=== PATIENT | male | born 2000 | race Caucasian/White ===

== ENCOUNTER 2023-11-23 16:13 | Emergency (ER) | payer OTHER ==
[~2023-11-23] VITALS: Ht 182.9 cm; Wt 90.7 kg
[2023-11-23 16:58] VITALS: BP 122/96
[2023-11-24] MEDS ORDERED: ONDA4ODT MM (15:59)
[2023-11-24] MEDS ORDERED: FAMO20 PO (15:59)
== END 2023-11-23 17:22 | disposition home or self-care (01) ==
LOC: ER 16:13
DX: K59.00 Constipation, unspecified (principal)
CPT/HCPCS: 99283; A9270

== ENCOUNTER 2023-11-24 13:08 | Emergency (ER) | payer OTHER ==
[~2023-11-24] VITALS: Ht 182.9 cm; Wt 87.5 kg
[2023-11-24 14:08] LABS: BASOPHILS ABSOLUTE AUTO 0.02 K/mm3 (0.00-0.23); BASOPHILS PERCENT AUTO 0 % (0-2); EOSINOPHILS ABSOLUTE AUTO 0.03 K/mm3 (0.00-0.68); EOSINOPHILS PERCENT AUTO 1 % (0-6); Hematocrit 47.2 % (37.0-53.0); Hemoglobin 15.1 g/dL (13.5-17.5); IMMATURE GRAN ABSOLUTE AUTO 0.01 K/mm3 (0.00-0.10); IMMATURE GRAN PERCENT AUTO 0 % (0-1); LYMPHOCYTES ABSOLUTE AUTO 1.86 K/mm3 (0.84-5.20); LYMPHOCYTES PERCENT AUTO 28 % (21-46); MONOCYTES ABSOLUTE AUTO 0.73 K/mm3 (0.16-1.47); MONOCYTES PERCENT AUTO 11 % (4-13); Mean Corpuscular HGB 26.4 pg (26.0-34.0); Mean Corpuscular Volume 83 fL (80-100); NEUTROPHILS ABSOLUTE AUTO 3.94 K/mm3 (1.96-9.15); NEUTROPHILS PERCENT AUTO 60 % (41-73); Platelet Count 475 K/mm3 (150-400); RDW Standard Deviation 41.9 fL (35.1-46.3); Red Blood Cell Count 5.71 M/mm3 (4.30-5.90); White Blood Cell Count 6.59 K/mm3 (4.00-11.30)
[2023-11-24 14:18] LABS: Albumin, Blood 3.8 g/dL (3.4-5.0); Albumin/Globulin Ratio 0.8 (0.8-1.8); Bilirubin, Total 0.7 mg/dL (0.1-1.0); Calcium, Blood 9.3 mg/dL (8.5-10.1); Globulin, Blood 4.6 g/dL (2.2-4.0); Potassium, Blood 3.8 mmol/L (3.5-5.5); Total Protein, Blood 8.4 g/dL (6.4-8.2)
[2023-11-24] MEDS ORDERED: FAMO20 PO (15:59)
[2023-11-24] MEDS ORDERED: ONDA4ODT MM (15:59)
[2023-11-24 16:00] VITALS: BP 127/83
== END 2023-11-24 16:10 | disposition home or self-care (01) ==
LOC: ER 13:08
PROVIDERS: Physician Assistant
DX: K21.9 Gastro-esophageal reflux disease without esophagitis (principal); K59.00 Constipation, unspecified; K29.70 Gastritis, unspecified, without bleeding
CPT/HCPCS: 80053; 81000; 83690; 85025; 96361; 96374; 96375; 99284-25; A9270; J1885; J2405; J7030

== ENCOUNTER → 2024-05-07 | Outpatient (CLI) | payer BC, OTHER ==
[~2024-05-07] MED LIST: CATAPRES0.1 MG; FAMO20 PO; ONDA4ODT MM; SERT50; TRAZ50
[2024-05-08 18:34] LABS: Adenovirus F 40/41 Not Detected (NOT DETECT); Astrovirus Not Detected (NOT DETECT); Campylobacter Sp Not Detected (NOT DETECT); Cryptosporidium Not Detected (NOT DETECT); Cyclospora Cayetanensis Not Detected (NOT DETECT); E. Coli O157 Not Detected (NOT DETECT); Entamoeba Histolytica Not Detected (NOT DETECT); Enteroaggregative E. coli-EAEC Not Detected (NOT DETECT); Enteropathogenic E. coli-EPEC Detected (NOT DETECT); Enterotoxigenic E. coli-ETEC Not Detected (NOT DETECT); Giardia Lamblia Not Detected (NOT DETECT); Norovirus GI/GII Not Detected (NOT DETECT); Plesiomonas Shigelloides Not Detected (NOT DETECT); Rotavirus A Not Detected (NOT DETECT); Salmonella Sp Not Detected (NOT DETECT); Sapovirus Not Detected (NOT DETECT); Shiga Toxin-prod E. coli-STEC Not Detected (NOT DETECT); Shigella/Enteroin E. coli-EIEC Not Detected (NOT DETECT); Vibrio Cholerae Not Detected (NOT DETECT); Vibrio Sp Not Detected (NOT DETECT); Yersinia Enterocolitica Not Detected (NOT DETECT)
== END ==
LOC: LAB 13:55 → LAB SHORT 13:55 → EDSTATUS 05-06 14:00 → LAB FUT 05-06 14:00
PROVIDERS: Physician Assistant Medical
DX: K50.012 Crohn's disease of small intestine with intestinal obstruction (principal)
CPT/HCPCS: 87507